=== PATIENT | male | born 1970 | race American Indian/Alaskan Native ===

== ENCOUNTER 2018-04-19 18:29 | Inpatient (IN) | payer SELFPAY ==
[2018-04-19] MEDS ORDERED: CATAPRES PO ONE ×2 (19:12→20:31)
[2018-04-19 19:58] LABS: Basophils # (Auto) 0.1 K/mm3 (0.0-0.1); Basophils % (Auto) 0.8 % (0.0-1.8); Eosinophils # (Auto) 0.1 K/mm3 (0.0-0.4); Eosinophils % (Auto) 1.1 % (0.0-4.3); Hematocrit 42.1 % (35.5-45.6); Hemoglobin 13.1 gm/dl (11.8-15.2); Lymphocytes # (Auto) 1.2 K/mm3 (1.2-5.4); Lymphocytes % (Auto) 17.6 % (13.4-35.0); Mean Corpuscular HGB Conc 31 % (32-34); Mean Corpuscular Hemoglobin 28 pg (28-32); Mean Corpuscular Volume 89 fl (84-94); Monocytes # (Auto) 0.6 K/mm3 (0.0-0.8); Monocytes % (Auto) 7.8 % (0.0-7.3); Platelet Count 180 K/mm3 (140-440); Red Blood Count 4.74 M/mm3 (3.65-5.03); Red Cell Distribution Width 15.7 % (13.2-15.2)
[2018-04-19] MEDS ORDERED: CATAPRES ONE (20:31)
[2018-04-19 20:32] LABS: BUN/Creatinine Ratio 9; Blood Urea Nitrogen 13 mg/dL (9-20); Calcium 9.2 mg/dL (8.4-10.2); Hemolysis Index 8
--- NOTE | 2018-04-19 20:37 | XRay Report ---
FINAL REPORT PROCEDURE: XR CHEST ROUTINE 2V TECHNIQUE: PA and lateral chest radiographs were obtained. CPT 01717 HISTORY: Shortness of breath COMPARISON: No prior studies are available for comparison. FINDINGS: Heart: Normal. Mediastinum/Vessels: Normal. Lungs/Pleural space: No infiltrate, effusion, or pneumothorax is seen. Bony thorax: No acute osseous abnormality. Other: IMPRESSION: No radiographic evidence of acute abnormality.
[2018-04-19] MEDS ORDERED: ASPIRIN PO ONE (22:29)
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
[2018-04-19] MEDS ORDERED: NITROSTAT SL PRN (23:53)
[2018-04-20] MEDS: HEPARIN SUB-Q SCH ×3 (00:57→21:23)
[2018-04-20 03:48] LABS: Creatine Kinase MB 10.6 ng/mL (0.0-4.0)
[2018-04-20] MEDS ORDERED: TYLENOL PO PRN (03:56)
[2018-04-20 08:17] LABS: Creatine Kinase MB 9.6 ng/mL (0.0-4.0)
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
[2018-04-20] MEDS ORDERED: LEXISCAN IV ONE ×2 (08:53→09:47)
--- NOTE | 2018-04-20 10:48 | Discharge Summary ---
Providers - Providers Date of Admission: 04/19/18 23:47 Attending physician: JUAN LESLIE MD Primary care physician: [facility]ACTICE NURSE PSYCHOTHERAPIST Hospitalization Condition: Stable Disposition: DC-01 TO HOME OR SELFCARE Time spent for discharge: 35 MINS Exam - Constitutional Vitals: Temp Pulse Resp BP Pulse Ox 98.5 F 59 L 20 141/105 95 04/20/18 08:00 04/20/18 08:04 04/20/18 08:04 04/20/18 08:04 04/20/18 08:04 Plan Activity: advance as tolerated, fall precautions Diet: low cholesterol Special Instructions: record daily weights, record daily BP diary Follow up with: PRIMARY CARE, [Primary Care Provider] - 3-5 Days Prescriptions: Lisinopril/Hydrochlorothiazide [Zestoretic 20-12.5 mg] 1 tab PO QDAY #30 tab
[2018-04-20] MEDS ORDERED: Fluarix Quad 2017-2018(36 MOS+ IM ONE (12:00)
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
--- NOTE | 2018-04-20 13:37 | Progress Note ---
Assessment and Plan Assessment and plan: Patient is a 48-year-old male past medical history of hypertension and noncompliance with medications who presented with shortness of breath and chest pain. On admission the patient was noted to have SYSTOLIC blood pressure in the 170s was diastolic of 100. Atypical chest pain Exertional dyspnea Hypertensive urgency Tobacco use disorder Morbid obesity Plan * Await stress test result * Continue supportive care. * Initiate PO antihypertensive medication * 15 mins spent on weightloss AND Tobacco cessation counselling * Cardiology consult * DVT/GI prophy History Interval history: Patient seen and examined this morning still with some shortness of breath but no further chest pain. Hospitalist Physical - Physical exam Narrative exam: VITAL SIGNS: Reviewed. GENERAL: The patient appeared well nourished and normally developed. Morbid obesity Vital signs as documented. HEAD: No signs of head trauma. EYES: Pupils are equal. Extraocular motions intact. EARS: Hearing grossly intact. MOUTH: Oropharynx is normal. NECK: No adenopathy, no JVD. CHEST: Chest with clear breath sounds bilaterally. No wheezes, rales, or rhonchi. CARDIAC: Regular rate and rhythm. S1 and S2, without murmurs, gallops, or rubs. VASCULAR: Trace Edema. Peripheral pulses normal and equal in all extremities. ABDOMEN: Soft, without detectable tenderness. No sign of distention. No rebound or guarding, and no masses palpated. Bowel Sounds normal. MUSCULOSKELETAL: Good range of motion of all major joints. Extremities without clubbing, cyanosis. Trace edema. NEUROLOGIC EXAM: Alert and oriented x 3. No focal sensory or strength deficits. Speech normal. Follows commands. PSYCHIATRIC: Mood normal. SKIN: No rash or lesions. - Constitutional Vitals: Temp Pulse Resp BP Pulse Ox 98.4 F 96 H 20 147/94 96 04/20/18 12:00 04/20/18 12:00 04/20/18 12:33 04/20/18 12:33 04/20/18 12:00 Results - Labs CBC & Chem 7: 04/19/18 19:41 04/19/18 19:41 Labs: Laboratory Last Values WBC 7.1 K/mm3 (4.5-11.0) 04/19/18 19:41 RBC 4.74 M/mm3 (3.65-5.03) 04/19/18 19:41 Hgb 13.1 gm/dl (11.8-15.2) 04/19/18 19:41 Hct 42.1 % (35.5-45.6) 04/19/18 19:41 MCV 89 fl (84-94) 04/19/18 19:41 MCH 28 pg (28-32) 04/19/18 19:41 MCHC 31 % (32-34) L 04/19/18 19:41 RDW 15.7 % (13.2-15.2) H 04/19/18 19:41 Plt Count 180 K/mm3 (140-440) 04/19/18 19:41 Lymph % (Auto) 17.6 % (13.4-35.0) 04/19/18 19:41 [place] % (Auto) 7.8 % (0.0-7.3) H 04/19/18 19:41 Eos % (Auto) 1.1 % (0.0-4.3) 04/19/18 19:41 Baso % (Auto) 0.8 % (0.0-1.8) 04/19/18 19:41 Lymph # 1.2 K/mm3 (1.2-5.4) 04/19/18 19:41 [place] # 0.6 K/mm3 (0.0-0.8) 04/19/18 19:41 Eos # 0.1 K/mm3 (0.0-0.4) 04/19/18 19:41 Baso # 0.1 K/mm3 (0.0-0.1) 04/19/18 19:41 Seg Neutrophils % 72.7 % (40.0-70.0) H 04/19/18 19:41 Seg Neutrophils # 5.2 K/mm3 (1.8-7.7) 04/19/18 19:41 Sodium 143 mmol/L (137-145) 04/19/18 19:41 Potassium 4.3 mmol/L (3.6-5.0) 04/19/18 19:41 Chloride 109.3 mmol/L (98-107) H 04/19/18 19:41 Carbon Dioxide 22 mmol/L (22-30) 04/19/18 19:41 Anion Gap 16 mmol/L 04/19/18 19:41 BUN 13 mg/dL (9-20) 04/19/18 19:41 Creatinine 1.4 mg/dL (0.8-1.5) 04/19/18 19:41 Estimated GFR > 60 ml/min 04/19/18 19:41 BUN/Creatinine Ratio 9 % 04/19/18 19:41 Glucose 98 mg/dL (75-100) 04/19/18 19:41 Calcium 9.2 mg/dL (8.4-10.2) 04/19/18 19:41 Total Creatine Kinase 361 units/L (55-170) H 04/20/18 06:46 CK-MB (CK-2) 9.6 ng/mL (0.0-4.0) H 04/20/18 06:46 CK-MB (CK-2) Rel Index 2.6 (0-4) 04/20/18 06:46 Troponin T < 0.010 ng/mL (0.00-0.029) 04/20/18 06:46
[2018-04-20] MEDS: ASPIRIN PO SCH (14:28)
[2018-04-20] MEDS: ZESTRIL PO SCH (16:30)
[2018-04-20] MEDS: COREG PO SCH ×2 (16:31→21:23)
--- NOTE | 2018-04-20 19:24 | Treadmill Report ---
Nuclear Stress Test REFERRING PHYSICIAN: Hospitalist service. PROTOCOL: The patient was brought to the stress lab in the postabsorptive state, given 10 mCi of technetium 99m at rest. The patient underwent rest imaging. The patient underwent Lexiscan stress test per standard protocol. At peak stress, the patient was given 26 mCi of technetium 99m. Shortly thereafter, the patient underwent stress imaging. Raw imaging reveals significant GI artifact, this is a technically difficult study, but probably grossly normal without a larger significant degree of reversal or fixed defect suggestive of prior infarction or ischemia. Gated wall motion reveals severe global left ventricular hypokinesis. Calculated ejection fraction of 31%. No TID. CONCLUSIONS: 1. Technically difficult and limited study, but grossly no evidence of significant degree of ischemia or prior infarction. 2. Gated wall motion reveals severe global left ventricular hypokinesis with a calculated ejection fraction of 31%. 3. We would consider clinical correlation with an echocardiogram. JOB# [id number] [facility]ET[facility]/JOSLYN
[2018-04-21] MEDS ORDERED: APRESOLINE IV PRN (08:00)
--- NOTE | 2018-04-21 10:36 | Discharge Summary ---
Providers - Providers Date of Admission: 04/19/18 23:47 Attending physician: JUAN LESLIE MD Primary care physician: CABLE SPLICING TECHNICIAN Hospitalization Condition: Stable Hospital course: Patient is a 48-year-old male past medical history of hypertension and noncompliance with medications who presented with shortness of breath and chest pain. On admission the patient was noted to have SYSTOLIC blood pressure in the 170s was diastolic of 100. Patient stress was noted to be grossly abnormal with EF of 31 % otherwise no new complaints. He was seen by cardiology with medication optimization done. Echo was ordered and outaptient follow up set. Medication compliance was stressed Atypical chest pain Exertional dyspnea Hypertensive urgency Tobacco use disorder Morbid obesity Plan * Await stress test result * Continue supportive care. * Initiate PO antihypertensive medication * 15 mins spent on weightloss AND Tobacco cessation counselling * Cardiology consult * DVT/GI prophy Disposition: DC-01 TO HOME OR SELFCARE Exam - Constitutional Vitals: Temp Pulse Resp BP Pulse Ox 97.5 F L 64 20 130/81 94 04/21/18 07:25 04/21/18 07:25 04/21/18 07:25 04/21/18 07:25 04/21/18 07:44 Plan Activity: advance as tolerated, fall precautions Diet: low fat, low salt Special Instructions: record daily BP diary, record blood sugar diary Follow up with: PRIMARY MD SHAE [Primary Care Provider] - 3-5 Days ROMEO VASQUEZ MD [Staff Physician] - 7 Days Prescriptions: ALBUTEROL Inhaler [ProAir HFA Inhaler] 2 puff IH QID PRN #1 inhalation PRN Reason: Shortness Of Breath Carvedilol [Coreg] 12.5 mg PO BID #60 tablet Lisinopril/Hydrochlorothiazide [Zestoretic 20-12.5 mg] 1 tab PO QDAY #30 tab
[2018-04-21] MEDS: ASPIRIN PO SCH (10:55)
[2018-04-21] MEDS: ZESTRIL PO SCH (10:55)
[2018-04-21] MEDS: COREG PO SCH (10:56)
[2018-04-21] MEDS: HEPARIN SUB-Q SCH (10:56)
--- NOTE | 2018-04-21 11:53 | Progress Note ---
Assessment and Plan Assessment/Plan: Dyspnea/?Acute heart failure Clinically improving Stress MPI 04/20: TDS, probably normal, EF 31% BNP 1007 Continue lisinopril 20mg PO daily, coreg 12.5mg BID Await echo findings Abnormal EKG No chest pain Troponin negative x 3 Stress MPI today: TDS, probably normal, EF 31% Hypertension BP stable Continue lisinopril 20mg PO daily,coreg 12.5mg BID Tobacco use Counseled on cessation The patient has been seen in conjunction with Dr. Fernando who agrees with the assessment and plan of care. Subjective Date of service: 04/21/18 Principal diagnosis: dyspnea Interval history: The patient is resting in bed. No new complaints. Sinus rhythm on the monitor. Objective Last Vital Signs Temp 97.5 F L 04/21/18 07:25 Pulse 64 04/21/18 10:56 Resp 20 04/21/18 07:25 BP 130/81 04/21/18 10:56 Pulse Ox 94 04/21/18 07:44 - Physical Examination General: No Apparent Distress HEENT: Positive: PERRL, Normocephaly, Mucus Membranes Moist Neck: Positive: neck supple, trachea midline Cardiac: Positive: Reg Rate and Rhythm, S1/S2 Lungs: Positive: clear to auscultation Neuro: Positive: Grossly Intact Abdomen: Positive: Soft, Active Bowel Sounds. Negative: Tender Skin: Positive: Clear. Negative: Rash Extremities: Present: normal. Absent: edema - Imaging and Cardiology EKG: image reviewed Echo: pending - Telemetry EKG Rhythm: Sinus Rhythm - EKG Sinus rhythms and dysrhythmias: sinus rhythm Repolarization changes or abnormalities: ST or T wave suggestive of ischemia
[2018-04-21 12:10] VITALS: BP 143/97
== END 2018-04-21 13:55 | disposition home or self-care (01) | DRG 313 ==
LOC: ED 18:29 → 4A 23:47
PROVIDERS: ADMIT Internal Medicine; ATTEND Internal Medicine
DX: R07.89 Other chest pain (principal); Z68.41 Body mass index [BMI] 40.0-44.9, adult; I16.0 Hypertensive urgency; R06.09 Other forms of dyspnea; R94.31 Abnormal electrocardiogram [ECG] [EKG]; I10 Essential (primary) hypertension; E11.9 Type 2 diabetes mellitus without complications; J45.909 Unspecified asthma, uncomplicated; E66.01 Morbid (severe) obesity due to excess calories; Z71.6 Tobacco abuse counseling
CPT/HCPCS: 36415; 71046; 78452; 80048; 82550; 82553; 83880; 84484; 85025; 90686; 93005; 93010; 93017; 93306; 94760; 99406; A9502; J1644; J2785